=== PATIENT | male | born 1970 | race Caucasian/White ===

== ENCOUNTER 2024-12-14 19:56 | Emergency (ER) | payer OTHER, SELFPAY ==
[2024-12-14] VITALS (42 sets, daily range): BP systolic 118–170; BP diastolic 72–109; PULSE 89–125; RESP 11–33; TEMP 37.1; O2SAT 81–99
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
[2024-12-14 20:21] LABS: Abs Immature Grans 0.04 10^3/uL (0.0-0.06); HCT 49.1 % (40.0-50.0); HGB 16.8 g/dL (13.5-17.5); Immature Grans % 0.6 %; MCH 33.8 pg (27.0-33.0); MCHC 34.2 % (32.0-36.0); MCV 99 fL (80-95); MPV 9.2 fL (8.0-11.0); Platelet Count 258 10^3/uL (130-400); RBC 4.97 10^6/uL (4.36-5.78); RDW 13.5 % (11.8-14.1); RDW-SD 49.1 fL; WBC 6.48 10^3/uL (4.4-10.8)
[2024-12-14] MEDS: MORPHine 4 MG/ML SYR (20:41)
[2024-12-14 20:42] LABS: ALT 32 U/L (16-63); AST 28 U/L (15-37); Albumin 3.5 g/dL (3.4-5.0); Alkaline Phosphatase 101 U/L (46-116); Anion Gap 6.7 mmol/L (3-11); BUN 9 mg/dL (7-18); Bilirubin, Total 0.3 mg/dL (0.2-1.0); CO2 32.3 mmol/L (21.0-32.0); Calcium 8.7 mg/dL (8.5-10.1); Chloride 108 mmol/L (98-107); Estimated GFR 79.77 (mL/min/1.73m2); Glucose 101 mg/dL (74-106); Lipase 46 U/L (<78); Magnesium 2.1 mg/dL (1.8-2.4); Potassium 3.5 mmol/L (3.5-5.1); Sodium 147 mmol/L (136-145); Total Protein 7.1 g/dL (6.4-8.2)
[2024-12-14] MEDS: Lactated Ringers 1,000 ML 1000 ML IV ×2 (20:42→20:46)
[2024-12-14] MEDS: Omnipaque 350 MG/ML 100 ML BTL IJ (20:43)
[2024-12-14] MEDS: Normal Saline - Diluent 50 ML VIAL IJ (20:43)
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
--- NOTE | 2024-12-14 21:18 | SUR.PHASEI ---
pt placed on o2 at 2lbnc
[2024-12-14] MEDS: Haloperidol 5 MG/ML VIAL 2 MG IM/IV (21:22)
[2024-12-14 21:29] LABS: Glucose Negative (Negative)
[2024-12-14 21:38] LABS: C & S Indicated? No; RBC 0-2 HPF (0-2); WBC 0-2 HPF (0-5)
[2024-12-14 21:44] LABS: Cannabinoids THC Positive (Negative); METHADONE URINE SCREEN Negative (Negative)
[2024-12-15] VITALS (68 sets, daily range): BP systolic 113–171; BP diastolic 63–132; PULSE 36–143; RESP 13–31; O2SAT 90–100
[2024-12-15] MEDS: Ketorolac 15 MG/ML VIAL IVP (06:33)
== END 2024-12-15 07:23 | disposition home or self-care (01) ==
PROVIDERS: Emergency Provider Emergency Medicine
DX: S22.42XA Multiple fractures of ribs, left side, initial encounter for closed fracture (principal); F10.929 Alcohol use, unspecified with intoxication, unspecified; V86.55XA Driver of 3- or 4- wheeled all-terrain vehicle (ATV) injured in nontraffic accident, initial encounter; R10.30 Lower abdominal pain, unspecified; R07.89 Other chest pain
CPT/HCPCS: 99284; 99285; 96374; 96375; 96372; 74177; 80053; 80307; 83690; 86850; 86900; 86901; 96361; 70450; 71260; 72125; 80320; 81003; 81015; 83735; 85025; J1630; J1885; J2270; J3490